=== PATIENT | female | born 1980 ===

== ENCOUNTER 2016-06-14 09:41 | Emergency (ER) | payer OTHER ==
[2016-06-14 09:51] VITALS: TEMP 98.6
--- NOTE | 2016-06-14 10:02 | C.PDOC ---
History Of Present Illness 35-year-old female, PMHx includes Hypertension, Anxiety and Depression, presents to the emergency department with complaints of anxiety. Patient states she has a five-year Hx of Anxiety, but is not on any medication. States she woke up this morning, and felt anxious and "jittery" states she feels like her heart is beating fast, resulting in her coming to the ED for evaluation. Patient notes she has received Valium twice in the past for her symptoms. Denies cocaine/marijuana/drug use, SI/HI, nausea/vomiting, chest pain, shortness of breath, swelling in extremities, dizziness, headaches, back pain, or any other associated symptoms. No other complaints at this time. Time Seen by Provider: 06/14/16 10:01 Chief Complaint (Nursing): Anxiety History Per: Patient History/Exam Limitations: no limitations Onset/Duration Of Symptoms: Hrs Current Symptoms Are (Timing): Still Present Suicide/Self Injury Attempted (Context): None Past Medical History Reviewed: Historical Data, Nursing Documentation, Vital Signs Vital Signs: Last Vital Signs Temp 98.6 F 06/14/16 09:46 Pulse 94 H 06/14/16 14:05 Resp 18 06/14/16 14:05 BP 131/92 H 06/14/16 14:05 Pulse Ox 100 06/15/16 15:06 - Medical History PMH: Anxiety, Depression, HTN Family History: States: Unknown Family Hx - Social History Hx Alcohol Use: Yes Hx Substance Use: No - Immunization History Hx Tetanus Toxoid Vaccination: No Hx Influenza Vaccination: Yes (01/2017) Hx Pneumococcal Vaccination: No Review Of Systems Except As Marked, All Systems Reviewed And Found Negative. Constitutional: Negative for: Fever, Chills Cardiovascular: Negative for: Chest Pain, Palpitations Respiratory: Negative for: Shortness of Breath Gastrointestinal: Negative for: Nausea, Vomiting Musculoskeletal: Negative for: Neck Pain, Back Pain Skin: Negative for: Rash Neurological: Negative for: Weakness, Numbness Psych: Positive for: Anxiety. Negative for: Depression, Suicidal ideation Physical Exam - Physical Exam Appears: Non-toxic, No Acute Distress, Other (appears anxious) Skin: Warm, Dry, No Rash Head: Atraumatic, Normacephalic Eye(s): bilateral: Normal Inspection, PERRL, EOMI Nose: Normal Oral Mucosa: Moist Lips: Normal Appearing Neck: Normal ROM Chest: Symmetrical Cardiovascular: Rhythm Regular (Tachycardia) Respiratory: Normal Breath Sounds Gastrointestinal/Abdominal: Soft, No Tenderness Extremity: Normal ROM, No Pedal Edema Neurological/Psych: Oriented x3, Normal Speech ED Course And Treatment - Laboratory Results Result Diagrams: 06/14/16 10:25 06/14/16 10:25 ECG: Interpreted By Me, Viewed By Me ECG Interpretation: No Acute Changes Interpretation Of ECG: Normal axis, No acute ischemia Rate From EC O2 Sat by Pulse Oximetry: 100 - Radiology CXR: Interpreted by Me, Viewed By Me CXR Interpretation: Yes: No Acute Disease Medical Decision Making Medical Decision Making: after ativan the pt reports her symptoms are completely resolved- she feels normal. her HR is still a bit fast although she is not aware of it and ambulated to the bathroom without any problems. no risk fx and no chest pain or sob to suggest PE. I gave IVF which did bring her HR down. She was agreeable to dc, will f/u w pcp and return if worse. Disposition - Disposition Referrals: Luis Canales MD [Staff Provider] - Disposition: HOME/ ROUTINE Disposition Time: 13:53 Condition: IMPROVED Additional Instructions: Please follow up with a primary doctor as soon as possible. Return to the ER for any worsening symptoms, chest pain, difficulty breathing or for any other concerns. Instructions: Anxiety (ED) Forms: General Discharge Instructions - Clinical Impression Clinical Impression: Anxiety, Tachycardia - Scribe Statement The provider has reviewed the documentation as recorded by the Nathaliaibaba Rojas All medical record entries made by the Scribe were at my direction and personally dictated by me. I have reviewed the chart and agree that the record accurately reflects my personal performance of the history, physical exam, medical decision making, and the department course for this patient. I have also personally directed, reviewed, and agree with the discharge instructions and disposition.
[2016-06-14 10:36] LABS: BASO # 0.1 K/uL (0.0-0.2); BASO % 0.7 % (0.0-2.0); EOS % 0.3 % (0.0-4.0); LYMPH # 1.7 K/uL (1.0-4.3); LYMPH % 18.3 % (20.0-40.0); MEAN CELL VOLUME 87.3 fL (81.0-99.0); MEAN CORPUSCULAR HEMOGLOBIN 29.7 pg (27.0-31.0); MEAN CORPUSCULAR HGB CONC 34.1 g/dL (33.0-37.0); MEAN PLATELET VOLUME 9.5 fL (7.2-11.7); MONO # 0.4 K/uL (0.0-0.8); MONO % 4.4 % (0.0-10.0); WHITE BLOOD COUNT 9.3 K/uL (4.8-10.8)
[2016-06-14 10:46] LABS: CHLORIDE 99 mmol/L (98-107); RBC URINE 2 /hpf (0-3); URINE BILIRUBIN NEGATIVE (NEGATIVE); URINE BLOOD NEGATIVE (NEGATIVE); URINE COLOR Yellow (YELLOW); URINE GLUCOSE (UA) NORMAL (Normal); URINE KETONE NEGATIVE (NEGATIVE); URINE LEUKOCYTE ESTERASE TRACE Leu/uL (Negative); URINE PROTEIN 1+ mg/dL (NEGATIVE); URINE UROBILINOGEN NORMAL mg/dL (0.2-1.0); WBC URINE 3 /hpf (0-5)
[2016-06-14 10:47] LABS: POTASSIUM 3.8 mmol/L (3.6-5.2); SODIUM 141 mmol/L (132-148)
[2016-06-14 10:49] LABS: ALB/GLOB RATIO 1.2 (1.0-2.1); ALKALINE PHOSPHATASE 62 U/L (38-126); ALT/SGPT 21 U/L (9-52); AST/SGOT 24 U/L (14-36); BILIRUBIN,TOTAL 0.5 mg/dL (0.2-1.3); BLOOD UREA NITROGEN 9 mg/dL (7-17); CARBON DIOXIDE 27 mmol/L (22-30); GFR AFRICAN-AMERICAN > 60; GLUCOSE,RANDOM 108 mg/dL (65-105); TOTAL PROTEIN 8.3 g/dL (6.3-8.3)
[2016-06-14 10:50] LABS: CALCIUM 9.1 mg/dl (8.6-10.4)
--- NOTE | 2016-06-14 11:14 | RAD ---
HISTORY: tachycardia COMPARISON: No prior. FINDINGS: LUNGS: No focal airspace opacity. PLEURA: No significant pleural effusion identified, no pneumothorax apparent. CARDIOVASCULAR: Normal. OSSEOUS STRUCTURES: No significant abnormalities. VISUALIZED UPPER ABDOMEN: Upper abdomen is suboptimally evaluated. OTHER FINDINGS: None. IMPRESSION: No focal airspace opacity.
[2016-06-14 11:43] VITALS: RESP 18
[2016-06-14] MEDS ORDERED: Sodium Chloride 0.9% 1,000 ML IV ONE (12:47)
[2016-06-14] MEDS ORDERED: Sodium Chloride 0.9% 1,000 ML ONE (13:18)
[2016-06-14 14:06] VITALS: BP 131/92; PULSE 94
[2016-06-14 18:24] VITALS: O2SAT 100
--- NOTE | 2016-06-16 06:44 | CARD ---
APPROVED REPORT EKG Measurement Heart [id number] <Conclusion> Sinus tachycardia Septal infarct, age undetermined Abnormal ECG
== END 2016-06-14 14:36 | disposition home or self-care (01) ==
LOC: C.ER 09:41
DX: F41.9 Anxiety disorder, unspecified (principal); R00.0 Tachycardia, unspecified
CPT/HCPCS: 71010; 80053; 81001; 84443; 84703; 85025; 93005; 96361; 96374; 99284; J2060; J7040